=== PATIENT | male | born 1960 | race Caucasian/White ===

== ENCOUNTER 2018-10-12 17:24 | Emergency (ER) | payer OTHER, SELFPAY ==
[2018-10-12 17:35] VITALS: BP 153/93; PULSE 78; RESP 20; TEMP 36.2; O2SAT 100
--- NOTE | 2018-10-12 18:03 | ED_ITS ---
HPI - Male Genitourinary General Chief complaint: Urogenital-Male Stated complaint: VOMITING, KIDNEY STONE PAIN Time Seen by Provider: 10/12/18 18:03 Source: patient Mode of arrival: ambulatory Limitations: no limitations History of Present Illness HPI Narrative: 58-year-old male here for evaluation when he thinks is right- sided kidney stones. He states that he has had stones in the past but that was many years ago. Patient was seen on October 09, 2018 at an outside hospital where he had a CT scan performed which showed a 3 mm moderately obstructing stone in the distal ureter on the right. Patient also with multiple small nonobstructing stones seen in the kidney. Patient's labs were unremarkable with a creatinine of 1.5 no elevated white blood cell count. With a urinalysis showing occult blood. Patient states he received medicines while at that visit which improved his pain. he states that the pain returned again today. Related Data Allergies Allergy/AdvReac Type Severity Reaction Status Date / Time allopurinol Allergy Verified 10/12/18 17:34 azithromycin Allergy Verified 10/12/18 17:34 Review of Systems Constitutional Denies fever(s) Cardiovascular Denies chest pain and Denies dyspnea Respiratory Denies dyspnea Gastrointestinal Gastrointestinal: Reports nausea and Denies vomiting Genitourinary Reports dysuria, Reports flank pain and Reports urinary frequency Comments: Right flank pain Musculoskeletal Denies myalgias and Denies arthralgias Integumentary/Breasts Denies rash Hematologic/Lymphatic Comments: not on anticoagulation PFSH Medical History Hyperlipidemia (Acute) Surgical History No pertinent past surgical history (Acute) Social History Smoking Status: Never smoker Exam Initial Vital Signs Initial Vital Signs: Vital Signs Temperature 97.1 F L 10/12/18 17:35 Pulse Rate 78 10/12/18 17:35 Respiratory Rate 20 10/12/18 17:35 Blood Pressure 153/93 H 10/12/18 17:35 Pulse Oximetry 100 10/12/18 17:35 Const General: cooperative, well developed, well groomed and No acute distress Orientation: alert, awake and oriented x3 HENMT Head: normal to inspection and normocephalic Resp Effort & Inspection: normal respiratory effort General: No CVA tenderness Skin Rashes: no rashes Neuro General: alert, awake and oriented x3 Cognition: normal cognition Speech: speech normal Extrem General: normal to inspection and capillary refill normal Psych Appearance: grossly normal and well kempt Course Orders Ordered: ED Orders 10/12/18 17:50 Basic Metabolic Panel Stat Discontinued Medications Acetaminophen (Tylenol) 975 mg PO NOW ONE Stop: 10/12/18 18:20 Last Admin: 10/12/18 18:32 Dose: 975 mg Hydromorphone HCl (Dilaudid) 1 mg IV NOW ONE Stop: 10/12/18 19:44 Last Admin: 10/12/18 19:49 Dose: 1 mg Lidocaine HCl 7.6 ml/ Sodium (Chloride) 57.6 mls @ 345.6 mls/hr IV NOW ONE Stop: 10/12/18 18:20 Last Infusion: 10/12/18 19:15 Dose: 0 mls/hr Admin: 10/12/18 18:38 Dose: 345.6 mls/hr Sodium Chloride (Normal Saline 0.9%) 1,000 mls @ 1,000 mls/hr IV BOLUS ONE Stop: 10/12/18 19:18 Last Infusion: 10/12/18 20:11 Dose: 0 mls/hr Admin: 10/12/18 18:32 Dose: 1,000 mls/hr Ondansetron HCl (Zofran) 4 mg IV NOW ONE Stop: 10/12/18 18:20 Last Admin: 10/12/18 18:32 Dose: 4 mg Vital Signs - 8 hr 10/12/18 17:35 10/12/18 19:30 10/12/18 20:30 Temperature 97.1 F L Pulse Rate 78 88 81 Respiratory Rate 20 15 17 Blood Pressure 153/93 H Blood Pressure [Right Arm] 159/92 H 122/74 Pulse Oximetry 100 100 98 MDM - Male Genitourinary Lab Data Attestation: I reviewed the patient's lab results. Result diagrams: 10/12/18 17:50 Lab Results 10/12/18 Range/Units 17:50 Sodium 140 (137-145) mmol/L Potassium 4.0 (3.4-5.1) mmol/L Chloride 99 (98-107) mmol/L Carbon Dioxide 20 L (22-32) mmol/L BUN 29 H (9-20) mg/dL Creatinine 2.60 H (0.66-1.25) mg/dL Estimated GFR 25.7 L (>60) mL/min BUN/Creatinine Ratio 11.2 (6-22) Glucose 100 (70-100) mg/dL Calcium 9.8 (8.4-10.2) mg/dL Urine Dip Bedside Urine Glucose Negative Bedside Urine Bilirubin + 1 Bedside Urine Ketone +++ 80 Urine Specific [place] 1.030 Bedside Urine Occult Blood - Negative Bedside Urine pH 6.0 Bedside Urine Protein - Negative Bedside Urine Urobilinogen - Negative Bedside Urine Nitrite - Negative Bedside Urine Leukocytes - Negative Esterase MDM Narrative Medical decision making narrative: patient states that he feels much better after the medications here in the emergency department. He has no signs of a urinary tract infection. Does have an elevation in his creatinine to 2.6 today which is up from a couple days ago. I do suspect that this is secondary to the kidney stone. He is tolerating oral intake. I will hold on repeat CT scan today because he just had a CT scan a couple days ago which did show multiple stones in the right kidney. I did discuss all this with the patient. He has pain medication at home provided by his prior ER visit. He was given return precautions. He was instructed to follow up with his primary doctor. He expressed understanding and agreement plan. Discharge Plan Departure Patient Disposition: Home Clinical Impression: Renal colic on right side Instructions: Kidney Stones -- Adult Activity Restrictions/Additional Instructions: You can continue to take the pain medication that was given to you at your prior ER visit. Make sure that your staying hydrated Your kidney function today was slightly worse than at your last ER visit. I would recommend you contact Your primary care doctor for a follow-up. Return to the emergency department for any new symptoms, fevers, worsening pain, inability to tolerate oral intake, inability to urinate, or any other concerning symptoms.
[2018-10-12 18:20] LABS: BUN Creatinine Ratio 11.2 (6-22); Blood Urea Nitrogen 29 mg/dL (9-20); Calcium 9.8 mg/dL (8.4-10.2); Carbon Dioxide 20 mmol/L (22-32); Chloride 99 mmol/L (98-107); Estimated Glomerular Filt Rate 25.7 mL/min (>60); Glucose 100 mg/dL (70-100); HEMOLYSIS < 15 (0-50); Sodium 140 mmol/L (137-145)
[2018-10-12] MEDS: ACETAMINOPHEN 325 MG TABLET 975 MG PO (18:32)
[2018-10-12] MEDS: ONDANSETRON 4 MG/2 ML INJ IV (18:32)
[2018-10-12] MEDS: SODIUM CHLORIDE 0.9% 1,000 ML 1000 ML IV (18:32)
[2018-10-12] MEDS: LIDOCAINE 2% IV (18:38)
[2018-10-12] MEDS: SODIUM CHLORIDE 0.9% IV (18:38)
[2018-10-12 19:30] VITALS: BP 159/92; PULSE 88; RESP 15; O2SAT 100
[2018-10-12] MEDS: HYDROMORPHONE 1 MG INJ IV (19:49)
[2018-10-12 20:30] VITALS: BP 122/74; PULSE 81; RESP 17; O2SAT 98
== END 2018-10-12 21:10 | disposition home or self-care (01) ==
PROVIDERS: Emergency Provider Emergency Medicine; Family Provider Internal Medicine; PCP Internal Medicine
DX: N23 Unspecified renal colic (principal)
CPT/HCPCS: 36591; 80048; 81003; 96361; 96365; 96375; 99283; 99284; J1170; J2405

== ENCOUNTER 2020-09-18 15:30 | Outpatient (RCR) | payer OTHER, SELFPAY ==
--- NOTE | 2020-08-26 08:55 | ST.OPIE ---
Visit Care Team Role Provider Type Anton Farfan MD Family Provider Non-Staff Primary Care Provider Specialty: Family Practice Address: [address] [place] [address], [id number] Email: Sancho Pruitt MD Attending Provider Physician Referring Provider Specialty: Ear, Nose, Throat Address: [address] [place] [address], [id number] Email: [email or web address] Speech-Language Pathology Initial Evaluation RESERVE OPERATOR Voice Resonance Evaluation Start: 08/21/20 08:36 Freq: Status: Active Protocol: Document 08/21/20 08:36 GABY (Rec: 08/21/20 09:34 GABY [email or web address]) Voice and Resonance Assessment Session Time Visit Start Time 08:30 Visit Stop Time 09:23 Total Visit Minutes 53 Visit Information Visit Number Initial Evaluation Plan of Care Dates 08/21/20 - 11/21/20 Insurance Information [place] Next Note Type Next Note Type Treatment Note Referral Referring Physician Dr. Pruitt Reason for Referral Dysphonia Setting Setting Outpatient Care Patient History General Information The pt is a 59-yr-old male with complaints of vocal changes over the last year or more. The pt reports his voice goes from normal voicing to whisper unexpectedly and he feels he has no control over the loudness, sometimes being much louder than anticipated. He feels that he runs out of breath when the voice becomes a whisper. He denies pain and is unaffected in singing. When I'm on the stage, I just go for it. I just nail it! 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 PMHx is significant for asthma (dx ~15 yrs ago) and pneumonia x2 in rapid succession (Fall 2016 and Nov 2017). He feels that his breathing hasn't quite been the same since then. Prior to pneumonias, he had no real asthma symptoms. Now takes oral steroid 2x/day. Dx with sleep apnea but struggles to use C-Pap. The pt underwent laryngoscopy with Dr. 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 Hearing Hearing Level Normal Auditory History Pt suspects some loss d/t extensive exposure to loud band music but not functionally impaired. Receives regular hearing screenings from school nurse. 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 - Laryngeal Performance S/Z Ratio S/Z Ratio 0.8259 Functional for Speech Yes Reduced Laryngeal Function Relative to No Respiration Voice Handicap Index Function Subtotal 12 (Moderate) Physical Subtotal 28 (Severe) Emotional Subtotal 16 (Moderate-Severe) Total Score 56 Severity Moderate (31-60) CAPE-V Overall Severity 60% - Moderate-Severe Roughness 23% - Mild Breathiness 40% - Moderate Strain 60% - Moderate-Severe Pitch WNL Loudness 25% - Mild (occ loss/aphonia, quickly resolved) Normal Resonance? Yes Other Features Observed Reduced breath support Maximum Phonation Time MPT Norms: Women (15-25) Men (25-35) Loudness (50-60 dB); Speaking Rate: Oral Reading of Sentences (190 Words Per Minute); Oral Reading of Paragraphs (160-170 WPM); Speaking Rate in Conversation (150-250 WPM) Maximum Phonation Time 13 sec Maximum Phonation Time Reduced Maximum Phonation Time Comments 12.3 sec at normal loudness; increased to 13 sec with increased loudness Jitter/Shimmer Norms: Jitter (Less than or equal to 1.040% - Frequency) Norms: Shimmer (Less than or equal to 3.810% - Amplitude) Jitter .513 Shimmer 2.69 Pitch [place] Pitch [place] WNL Pitch [place] Comments 146-255 Hz in reading task Breath Support Speaks on Room Air Yes Postural Alignment Stance Balanced Shoulders Symmetrical Voice Pitch Range Norms: Women (100-300 Hz) Men (70-250 Hz) Fundamental Frequency Norms: Women (Mean: 225 Hz; Range: 155-334 Hz) Men ( Mean: 128 Hz; Range: 85-196 Hz) Voice Pitch Mildly High Voice Loudness Normal Fundamental Frequency 181 Hz in sustained phonation task Paradoxical Vocal Fold Movement No Indications Resonance Nasal Resonance Normal Oral Resonance Normal Therapeutic Techniques Therapy Tactics Increase Loudness Findings Findings Moderate Impairment Voice/Resonance Assessment Assessment The pt presents with moderate muscle tension dysphonia characterized by mild roughness, moderate breathiness, and moderate- severe strain with occasional brief episodes of aphonia. The pt is able to produce continuous voicing when singing but notes that he must increase his effort to do so, as compared to PLOF. Skilled intervention is medically necessary to improve the pt's vocal quality for him to resume professional responsibilities, functional communication, and perform hobbies. Prognosis Rehabilitation Potential Excellent - Recommendations Treatment Recommended Yes Treatment Frequency/Duration 12 visits in 4 mos Placement Recommendation Home,Outpatient Therapy Therapy Recommendations Pt education, breathing and vocal exercises Short Term Goals 1. The pt will perform diaphragmatic breathing in structured tasks with 80% accuracy to improve breath support for speech and voice. 2. The pt will perform laryngeal relaxation techniques with min cues and 80% acc to improve vocal quality and ease. 3. The pt will perform forward focus phonation (FFP) with 80 % accuracy in structured tasks to reduce laryngeal tension and improve vocal production. 4. The pt will sustain phonation with good vocal quality for 15 sec across three trials to improve breath support for voice and speech and improve vocal function. [facility] Goals 1. The pt will perform diaphragmatic breathing independently in vocal exercises and spontaneous speech tasks to improve breath support for speech and voice. 2. The pt will perform laryngeal relaxation techniques independently to extend duration of speech with optimal vocal quality. 3. The pt will exhibit no greater than mild dysphonia symptoms as measured by VHI and CAPE-V perceptual rating forms. 4. The pt will produce vocal quality WNL in spontaneous conversation to improve ability to express himself in functional conversations and speech tasks. Patient/Caregiver Education Patient/Family Education Described results of evaluation,Patient Understanding Vocally Abusive Behavior Behavior Rating Alcohol Consumption Infrequently [place] Talking Occasionally Arguing (peers/siblings/other) Infrequently Athletic Activity Yelling Occasionally Mouth Breathing Occasionally Caffeine Use 16 oz Mt Dew daily Calling from Distance Occasionally Cheerleading Participation Never Coughing/Sneezing Loudly Occasionally Crying Never Use of Dairy Products Frequently Environmental Irritant Exposure Infrequently Use of Inhalants Oral steriod, 2 puffs/day Laughing Hard/Abusively Occasionally Singing Abusively Frequently Participation In Plays Never Smoking Never Excessive Talking Occasionally Making Animal /Toy Noises Occasionally Yelling/Screaming Occasionally
--- NOTE | 2020-08-28 17:46 | ST.OPTN ---
Visit Care Team Role Provider Type Anton Farfan MD Family Provider Non-Staff Primary Care Provider Address: [address] [place] [address], [id number] Sancho Pruitt MD Attending Provider Physician Referring Provider Address: [address] [place] [address], [id number] WAREHOUSE STOCK CLERK Treatment Note WAREHOUSE STOCK CLERK Treatment Note Start: 08/21/20 08:36 Freq: Status: Active Protocol: Document 08/28/20 17:40 GABY (Rec: 08/28/20 17:45 GABY [email or web address]) Speech Pathology Treatment Note Session Time Visit Start Time 13:30 Visit Stop Time 14:15 Total Visit Minutes 45 Visit Information Visit Number 1 Plan of Care Dates 08/21/20 - 11/21/20 Insurance Information [facility] Treatment Setting Outpatient Care Visit Type Note Type Treatment Note Next Note Type Next Note Type Treatment Note General Information General Information The pt is a 59-yr-old male with complaints of vocal changes over the last year or more. The pt reports his voice goes from normal voicing to whisper unexpectedly and he feels he has no control over the loudness, sometimes being much louder than anticipated. He feels that he runs out of breath when the voice becomes a whisper. He denies pain and is unaffected in singing. When I'm on the stage, I just go for it. I just nail it! 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 PMHx is significant for asthma (dx ~15 yrs ago) and pneumonia x2 in rapid succession (Fall 2016 and Nov 2017). He feels that his breathing hasn't quite been the same since then. Prior to pneumonias, he had no real asthma symptoms. Now takes oral steroid 2x/day. Dx with sleep apnea but struggles to use C-Pap. The pt underwent laryngoscopy with Dr. 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 Subjective Observations/Patient Presentation The pt arrived on time. No new complaints. Chief Complaint(s) Voice Patient Knowledge/Awareness of WAREHOUSE STOCK CLERK Role Excellent in Treatment Objective Short Term Goals 1. The pt will perform diaphragmatic breathing in structured tasks with 80% accuracy to improve breath support for speech and voice. 2. The pt will perform laryngeal relaxation techniques with min cues and 80% acc to improve vocal quality and ease. 3. The pt will perform forward focus phonation (FFP) with 80 % accuracy in structured tasks to reduce laryngeal tension and improve vocal production. 4. The pt will sustain phonation with good vocal quality for 15 sec across three trials to improve breath support for voice and speech and improve vocal function. [facility] Goals 1. The pt will perform diaphragmatic breathing independently in vocal exercises and spontaneous speech tasks to improve breath support for speech and voice. 2. The pt will perform laryngeal relaxation techniques independently to extend duration of speech with optimal vocal quality. 3. The pt will exhibit no greater than mild dysphonia symptoms as measured by VHI and CAPE-V perceptual rating forms. 4. The pt will produce vocal quality WNL in spontaneous conversation to improve ability to express himself in functional conversations and speech tasks. Treatment Activities Educated pt in subsystems of voice. Initiated training in diaphragmatic breathing and yawn/sigh technique to reduce larygneal tension and improve vocal quality. The pt returned demonstration with good form, demonstrating understanding. Using diaphragmatic breath support and yawn/sigh technique, the pt sustained phonation for up to 14 sec with good voicing. He sustained phonation while increasing and decreasing vocal loudness targeting breath support vs laryngeal tension, again demonstrating good form and understanding. Information and instructions for techniques and exercises were provided in writing for home practice. Assessment Patient Response to Treatment Excellent Rehab Potential Excellent Impairments Identified Vocal Quality Assessment of Overall Progress Improving Assessment of Improvement The pt was highly responsive to all education and training and exhibited improved vocal quality in sustained phonation tasks while increasing MPT time with good vocal quality. The pt has a good baseline understanding of diaphragmatic breathing but had questions around its use, which were answered and assisted in his ability to perform as instructed. Reviewed with Patient Goals,Progress Being Made,Home Exercise Program Patient/Caregiver Understanding Excellent Plan Amount of Therapy Recommended 1-2 Months Frequency of Treatment Once a Week Length of Session 45 Minutes Therapeutic Contents Client Education,Home Exercise Program,Voice Training Provided Patient/Caregiver Instruction Home Exercise Program,Plan of Care,Questions/Concerns Therapy Recommendations Continue with Current Program
--- NOTE | 2020-09-04 18:50 | ST.OPTN ---
Visit Care Team Role Provider Type Anton Farfan MD Family Provider Non-Staff Primary Care Provider Address: [address] [place] [address], [id number] Sancho Pruitt MD Attending Provider Physician Referring Provider Address: [address] [place] [address], [id number] SENIOR SALES REPRESENTATIVE Treatment Note SENIOR SALES REPRESENTATIVE Treatment Note Start: 08/21/20 08:36 Freq: Status: Active Protocol: Document 09/04/20 18:40 GABY (Rec: 09/04/20 18:50 GABY [email or web address]) Speech Pathology Treatment Note Session Time Visit Start Time 15:30 Visit Stop Time 16:15 Total Visit Minutes 45 Visit Information Visit Number 2 Plan of Care Dates 08/21/20 - 11/21/20 Insurance Information [facility] Treatment Setting Outpatient Care Visit Type Note Type Treatment Note Next Note Type Next Note Type Treatment Note General Information General Information The pt is a 59-yr-old male with complaints of vocal changes over the last year or more. The pt reports his voice goes from normal voicing to whisper unexpectedly and he feels he has no control over the loudness, sometimes being much louder than anticipated. He feels that he runs out of breath when the voice becomes a whisper. He denies pain and is unaffected in singing. When I'm on the stage, I just go for it. I just nail it! 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 PMHx is significant for asthma (dx ~15 yrs ago) and pneumonia x2 in rapid succession (Fall 2016 and Nov 2017). He feels that his breathing hasn't quite been the same since then. Prior to pneumonias, he had no real asthma symptoms. Now takes oral steroid 2x/day. Dx with sleep apnea but struggles to use C-Pap. The pt underwent laryngoscopy with Dr. 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 Subjective Observations/Patient Presentation The pt arrived on time. He said he felt his voice has been improving but had a disappointing espisode of aphonia when speaking to the clinical trial assistant just before the session. He attempted to say Ok to her but produced it without voice. He was able to reattempt and did produce voice that time. Chief Complaint(s) Voice Patient Knowledge/Awareness of SENIOR SALES REPRESENTATIVE Role Excellent in Treatment Objective Short Term Goals 1. The pt will perform diaphragmatic breathing in structured tasks with 80% accuracy to improve breath support for speech and voice. 2. The pt will perform laryngeal relaxation techniques with min cues and 80% acc to improve vocal quality and ease. 3. The pt will perform forward focus phonation (FFP) with 80 % accuracy in structured tasks to reduce laryngeal tension and improve vocal production. 4. The pt will sustain phonation with good vocal quality for 15 sec across three trials to improve breath support for voice and speech and improve vocal function. Correction Goals 1. The pt will perform diaphragmatic breathing independently in vocal exercises and spontaneous speech tasks to improve breath support for speech and voice. 2. The pt will perform laryngeal relaxation techniques independently to extend duration of speech with optimal vocal quality. 3. The pt will exhibit no greater than mild dysphonia symptoms as measured by VHI and CAPE-V perceptual rating forms. 4. The pt will produce vocal quality WNL in spontaneous conversation to improve ability to express himself in functional conversations and speech tasks. Treatment Activities The pt performed diaphragmatic breathing in structured tasks independently. MPT = 15 sec Trained pt in staccato phonation exercise to promote VF adduction and reduce occurrences of aphonia. Pt produced staccato phonation at single note and across wide pitch range with ~90% accuracy of sharp vowel onset. Initiated Forward Focus Resonance (FFR) with education and demonstration. The pt produced /m/ with vibration at lips at single and range of notes. He produced /m/-initial CV syllables while maintaining FFR. Given examples of forward and back focused resonance, the pt discerned the difference, demonstrating awareness and perception. HEP tasks were provided and all questions answered. Assessment Patient Response to Treatment Excellent Rehab Potential Excellent Impairments Identified Vocal Quality Assessment of Overall Progress Improving Assessment of Improvement The pt is demonstrating independence with diaphragmatic breathing. No increase in MPT but improved control of expiratory phase exhibited. He was responsive to education and training in FFR, able to discern between target and non-target resonance when produced by SENIOR SALES REPRESENTATIVE and able to perform /m/ and / m/-initial CV syllables with good and consistent voicing. Reviewed with Patient Goals,Progress Being Made,Home Exercise Program Patient/Caregiver Understanding Excellent Plan Amount of Therapy Recommended 1-2 Months Frequency of Treatment Once a Week Length of Session 45 Minutes Therapeutic Contents Client Education,Home Exercise Program,Voice Training Provided Patient/Caregiver Instruction Home Exercise Program,Plan of Care,Questions/Concerns Therapy Recommendations Continue with Current Program
--- NOTE | 2020-09-13 13:02 | ST.OPTN ---
Visit Care Team Role Provider Type Anton Farfan MD Family Provider Non-Staff Primary Care Provider Address: [address] [place] [address], [id number] Sancho Pruitt MD Attending Provider Physician Referring Provider Address: [address] [place] [address], [id number] ASSOCIATE JUSTICE Treatment Note ASSOCIATE JUSTICE Treatment Note Start: 08/21/20 08:36 Freq: Status: Active Protocol: Document 09/11/20 17:04 GABY (Rec: 09/11/20 17:05 GABY [id number]) Speech Pathology Treatment Note Session Time Visit Start Time 15:35 Visit Stop Time 16:20 Total Visit Minutes 45 Visit Information Visit Number 3 Plan of Care Dates 08/21/20 - 11/21/20 Insurance Information [facility] Treatment Setting Outpatient Care Visit Type Note Type Treatment Note Next Note Type Next Note Type Treatment Note General Information General Information The pt is a 59-yr-old male with complaints of vocal changes over the last year or more. The pt reports his voice goes from normal voicing to whisper unexpectedly and he feels he has no control over the loudness, sometimes being much louder than anticipated. He feels that he runs out of breath when the voice becomes a whisper. He denies pain and is unaffected in singing. When I'm on the stage, I just go for it. I just nail it! 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 PMHx is significant for asthma (dx ~15 yrs ago) and pneumonia x2 in rapid succession (Fall 2016 and Nov 2017). He feels that his breathing hasn't quite been the same since then. Prior to pneumonias, he had no real asthma symptoms. Now takes oral steroid 2x/day. Dx with sleep apnea but struggles to use C-Pap. The pt underwent laryngoscopy with Dr. 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 Subjective Observations/Patient Presentation The pt arrived on time. Voice continues to give out when he attempts to speak in a quieter voice, as when he is in public and doesn't want to be intrusive toward others. No aphonia when teaching or singing. Chief Complaint(s) Voice Patient Knowledge/Awareness of ASSOCIATE JUSTICE Role Excellent in Treatment Objective Short Term Goals 1. The pt will perform diaphragmatic breathing in structured tasks with 80% accuracy to improve breath support for speech and voice. 2. The pt will perform laryngeal relaxation techniques with min cues and 80% acc to improve vocal quality and ease. 3. The pt will perform forward focus phonation (FFP) with 80 % accuracy in structured tasks to reduce laryngeal tension and improve vocal production. 4. The pt will sustain phonation with good vocal quality for 15 sec across three trials to improve breath support for voice and speech and improve vocal function. Bilingual Sales Representative Goals 1. The pt will perform diaphragmatic breathing independently in vocal exercises and spontaneous speech tasks to improve breath support for speech and voice. 2. The pt will perform laryngeal relaxation techniques independently to extend duration of speech with optimal vocal quality. 3. The pt will exhibit no greater than mild dysphonia symptoms as measured by VHI and CAPE-V perceptual rating forms. 4. The pt will produce vocal quality WNL in spontaneous conversation to improve ability to express himself in functional conversations and speech tasks. Treatment Activities The pt performed diaphragmatic breathing in structured tasks independently. MPT = 17 sec Pt performed sustained phonation with decrescendo to quietest volume that he could still sustain phonation. He was able to sustain phonation at this lowest level without breaks x6 trials. Since the pt does not experience pitch breaks when singing or reading, he sang a song and read a poem at that target lowest level. One pitch break was observed in each task; at a higher note than he was able to attain while singing, and when reading the title of the poem. Only the latter was typical of the aphonia he experiences, and he was able to maintain phonation while reading the poem. During follow-on conversation, the pt exhibited aphonia x3 when responding with Uh-huh, ok and hmm. When speaking longer sentences, no aphonia occurred . Instructed pt to add to HEP sustained phonation, singing, and reading at lowest loudness level that he is able to sustain phonation, taking breaths before, or any other strategy he finds useful, to aid phonation production. Assessment Patient Response to Treatment Excellent Rehab Potential Excellent Impairments Identified Vocal Quality Assessment of Overall Progress Improving Assessment of Improvement The pt is able to maintain phonation in conversations of any length greater than a 1- or 2-word/syllable response, as well as when using his performance voice (i.e., singing and reading aloud to others). His symptoms no longer are consistent with muscle tension dysphonia. Question if related to breath support. The pt is increasing his maximal phonation time and demonstrating improvement and independence with diaphragmatic breathing. Reviewed with Patient Goals,Progress Being Made,Home Exercise Program Patient/Caregiver Understanding Excellent Plan Amount of Therapy Recommended 1-2 Months Frequency of Treatment Once a Week Length of Session 45 Minutes Therapeutic Contents Client Education,Home Exercise Program,Voice Training Provided Patient/Caregiver Instruction Home Exercise Program,Plan of Care,Questions/Concerns Therapy Recommendations Continue with Current Program
--- NOTE | 2020-09-18 17:31 | ST.OPTN ---
Visit Care Team Role Provider Type Anton Farfan MD Family Provider Non-Staff Primary Care Provider Address: [address] [place] [address], [phone] Sancho Pruitt MD Attending Provider Physician Referring Provider Address: [address] [place] [address], [id number] SALESPERSON RECREATIONAL VEHICLES Treatment Note SALESPERSON RECREATIONAL VEHICLES Treatment Note Start: 08/21/20 08:36 Freq: Status: Active Protocol: Document 09/18/20 17:03 GABY (Rec: 09/18/20 17:30 GABY [email or web address]) Speech Pathology Treatment Note Session Time Visit Start Time 15:30 Visit Stop Time 16:20 Total Visit Minutes 50 Visit Information Visit Number 4 Plan of Care Dates 08/21/20 - 11/21/20 Insurance Information [facility] Treatment Setting Outpatient Care Visit Type Note Type Treatment Note Next Note Type Next Note Type Treatment Note General Information General Information The pt is a 59-yr-old male with complaints of vocal changes over the last year or more. The pt reports his voice goes from normal voicing to whisper unexpectedly and he feels he has no control over the loudness, sometimes being much louder than anticipated. He feels that he runs out of breath when the voice becomes a whisper. He denies pain and is unaffected in singing. When I'm on the stage, I just go for it. I just nail it! 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 PMHx is significant for asthma (dx ~15 yrs ago) and pneumonia x2 in rapid succession (Fall 2016 and Nov 2017). He feels that his breathing hasn't quite been the same since then. Prior to pneumonias, he had no real asthma symptoms. Now takes oral steroid 2x/day. Dx with sleep apnea but struggles to use C-Pap. The pt underwent laryngoscopy with Dr. 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 Subjective Observations/Patient Presentation The pt arrived on time. Voice continues to give out when he attempts to speak in a quieter voice, as when he is in public and doesn't want to be intrusive toward others. No aphonia when teaching or singing. Chief Complaint(s) Voice Patient Knowledge/Awareness of SALESPERSON RECREATIONAL VEHICLES Role Excellent in Treatment Objective Short Term Goals 1. The pt will perform diaphragmatic breathing in structured tasks with 80% accuracy to improve breath support for speech and voice. 2. The pt will perform laryngeal relaxation techniques with min cues and 80% acc to improve vocal quality and ease. 3. The pt will perform forward focus phonation (FFP) with 80 % accuracy in structured tasks to reduce laryngeal tension and improve vocal production. 4. The pt will sustain phonation with good vocal quality for 15 sec across three trials to improve breath support for voice and speech and improve vocal function. Sales Market Leader Goals 1. The pt will perform diaphragmatic breathing independently in vocal exercises and spontaneous speech tasks to improve breath support for speech and voice. 2. The pt will perform laryngeal relaxation techniques independently to extend duration of speech with optimal vocal quality. 3. The pt will exhibit no greater than mild dysphonia symptoms as measured by VHI and CAPE-V perceptual rating forms. 4. The pt will produce vocal quality WNL in spontaneous conversation to improve ability to express himself in functional conversations and speech tasks. Treatment Activities The pt performed diaphragmatic breathing in structured tasks independently. MPT = 16.5 sec Pt performed sustained phonation with decrescendo to quietest volume that he could still sustain phonation, which was ~65 dB. Phonation at 60 dB was intemittent. Decibel meter was used as visual aid and biofeedback for the pt to target certain loudness levels . The pt read two paragraphs, one with concentrated voiceless and one voiced phonemes. Paragraphs were of equal length. The pt required 3 breaths to complete voiceless-intense paragraph, while reading the voiced- intense paragraph on a single breath. He expressed feeling the voiceless-intense paragraph was significantly more difficult. The pt voiced/voiceless minimal pairs with quiet private voice and exhibited loss of phonation x4, twice with voiceless and twice with voiced consonant in initial positions of words. Pt was educated on GERD/LPR and possible impact on voice, but pt denied symptoms. Discussed indications of results of today's tasks, possible impact of VF edema found on ENT scope, and potential benefit of videostroboscopy if improvement is not made within the next several weeks. Discussed POC and agreed pt would continue with HEP and f/ u in 2 wks. Assessment Patient Response to Treatment Fair Rehab Potential Good Impairments Identified Dysphonia,Vocal Quality Progress Towards Goals Slow Progress Assessment of Overall Progress Improving Assessment of Improvement The pt continues with mildly improved vocal function since SOC but ongoing occ aphonia when speaking at low loudness levels, typically ~65 dB or less. His symptoms do not appear to be consistent with muscle tension dysphonia or spasmodic dysphonia, as they are exculsive to low loudness levels. Neither does he present with GERD/LPR symptoms that may contribute to voice symptoms. Breath support is reduced but improving, as demonstrated by slowly increasing MPT. The pt has achieved as much as 20 seconds of sustained phonation in home practice. Escape of air with voiceless phonemes is greater than normal, indicating incomplete VF adduction which is most likely the cause of intermittent aphonia. He will continue to work on breathing and VF adduction exercises and f/u in 2 wks. If no improvement occurs within the next 2-4 wks , recommend further assessment via videostroboscopy. The pt was receptive to considering that recommendation. Reviewed with Patient Goals,Progress Being Made,Home Exercise Program Patient/Caregiver Understanding Excellent Plan Amount of Therapy Recommended 1-2 Months Frequency of Treatment Once a Week Length of Session 45 Minutes Therapeutic Contents Client Education,Home Exercise Program,Voice Training Provided Patient/Caregiver Instruction Home Exercise Program,Plan of Care,Questions/Concerns Therapy Recommendations Continue with Current Program
--- NOTE | 2020-12-23 15:06 | ST.OPDS ---
Visit Care Team Role Provider Type Anton Farfan MD Family Provider Non-Staff Primary Care Provider Address: [address] [place] [address], [id number] Sancho Pruitt MD Attending Provider Physician Referring Provider Address: [address] [place] [address], [id number] CRUISE COUNSELOR Treatment Note CRUISE COUNSELOR Treatment Note Start: 08/21/20 08:36 Freq: Status: Active Protocol: Document 12/23/20 15:01 GABY (Rec: 12/23/20 15:06 GABY [email or web address]) Speech Pathology Treatment Note Visit Information Plan of Care Dates 08/21/20 - 11/21/20 Insurance Information [facility] Treatment Setting Outpatient Care Visit Type Note Type Discharge Summary General Information General Information The pt is a now 60-yr-old male with complaints of vocal changes over the last year or more. The pt reports his voice goes from normal voicing to whisper unexpectedly and he feels he has no control over the loudness, sometimes being much louder than anticipated. He feels that he runs out of breath when the voice becomes a whisper. He denies pain and is unaffected in singing. When I'm on the stage, I just go for it. I just nail it! 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 PMHx is significant for asthma (dx ~15 yrs ago) and pneumonia x2 in rapid succession (Fall 2016 and Nov 2017). He feels that his breathing hasn't quite been the same since then. Prior to pneumonias, he had no real asthma symptoms. Now takes oral steroid 2x/day. Dx with sleep apnea but struggles to use C-Pap. The pt underwent laryngoscopy with Dr. 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 Subjective Observations/Patient Presentation The pt was last seen for therapy 09/18/20. Chief Complaint(s) Voice Objective Short Term Goals 1. The pt will perform diaphragmatic breathing in structured tasks with 80% accuracy to improve breath support for speech and voice. 2. The pt will perform laryngeal relaxation techniques with min cues and 80% acc to improve vocal quality and ease. 3. The pt will perform forward focus phonation (FFP) with 80 % accuracy in structured tasks to reduce laryngeal tension and improve vocal production. 4. The pt will sustain phonation with good vocal quality for 15 sec across three trials to improve breath support for voice and speech and improve vocal function. Back Pad Inspector Goals 1. The pt will perform diaphragmatic breathing independently in vocal exercises and spontaneous speech tasks to improve breath support for speech and voice. 2. The pt will perform laryngeal relaxation techniques independently to extend duration of speech with optimal vocal quality. 3. The pt will exhibit no greater than mild dysphonia symptoms as measured by VHI and CAPE-V perceptual rating forms. 4. The pt will produce vocal quality WNL in spontaneous conversation to improve ability to express himself in functional conversations and speech tasks. Assessment Impairments Identified Vocal Quality,Vocal Hygiene Plan Therapy Recommendations Discharge from Speech Therapy
== END 2020-12-25 07:54 ==
LOC: SP 15:30
PROVIDERS: Family Provider Family Medicine; PCP Family Medicine; Referring Provider Otolaryngology; Visit Provider Otolaryngology
DX: J37.0 Chronic laryngitis (principal); R49.0 Dysphonia
CPT/HCPCS: 92507; 92520; 92524